=== PATIENT | female | born 2000 ===

== ENCOUNTER 2023-06-05 11:32 | Emergency (ER) | payer MEDICAID, OTHER ==
[~2023-06-05] VITALS: Ht 167.6 cm; Wt 78.8 kg
[2023-06-05 13:33] VITALS: BP 133/75; PULSE 67; RESP 18; TEMP 97.1; O2SAT 98
== END 2023-06-05 13:52 | disposition home or self-care (01) ==
LOC: ER 11:32
DX: S61.210A Laceration without foreign body of right index finger without damage to nail, initial encounter (principal); W26.0XXA Contact with knife, initial encounter; Y93.89 Activity, other specified; Y92.89 Other specified places as the place of occurrence of the external cause; Y99.8 Other external cause status
CPT/HCPCS: 12001